=== PATIENT | male | born 1995 | race Caucasian/White ===

== ENCOUNTER 2022-01-30 16:21 | Emergency (ER) | payer BC, SELFPAY ==
[2022-01-30 16:38] VITALS: BP 144/76; PULSE 67; RESP 18; TEMP 36.3; O2SAT 96; BMI 37.5
--- NOTE | 2022-01-30 17:10 | ED_ITS ---
HPI - General Adult General Chief complaint: Rib Pain Stated complaint: RIB INJURY WITH SWELLING Time Seen by Provider: 01/30/22 16:25 History of Present Illness HPI narrative: This 26-year-old male comes in with left lower anterior rib pain from an injury that occurred 4 days ago. He states that he was wrestling in fine with his fiancee and ended up landing on her hip with the of left lower anterior ribs. He had immediate pain which has worsened since then. He does not report any shortness of breath. He states that he still is doing workouts but had to modify as some maneuvers are too painful. Related Data Home Medications Medication Instructions Recorded Confirmed buspirone 5 mg tablet mg 01/30/22 escitalopram oxalate 20 mg tablet mg 01/30/22 gabapentin 100 mg capsule mg 01/30/22 lamotrigine 100 mg tablet mg 01/30/22 levetiracetam 1,000 mg tablet mg PO 01/30/22 testosterone intranasal 01/30/22 Allergies Allergy/AdvReac Type Severity Reaction Status Date / Time azithromycin [From Zithromax] Allergy Verified 01/30/22 16:38 Penicillins Allergy Verified 01/30/22 16:38 Review of Systems Status of ROS: Reports: 10 or more systems reviewed and unremarkable except as noted in History and below Narrative: Constitutional: No fevers, no weight gain or loss. Eyes: No discharge. No vision changes. HENT: No congestion, no sore throat, no ear pain. Cardiovascular: No palpitations. Rib injury as described above. Respiratory: No shortness of breath, no wheezes, no cough. Gastrointestinal: No abdominal pain, no vomiting, no diarrhea. Genitourinary: No dysuria, no hematuria. Musculoskeletal: Normal range of motion. Skin: No rashes, no pruritis. Neurological: No dizziness, weakness, sensory change, speech change. Endo/Heme/Allergies: No bruising or bleeding. No polydipsia. Pysch: no suicidality, no anxiety, no insomnia. All other systems reviewed and are negative. [facility] Medical History (Updated 01/30/22 @ 17:14 by Aj Nolasco MD) Drug abuse and dependence Seizure Social History Smoking Status: Current some day smoker What tobacco products do you use: cigarettes Do you use any of these nicotine containing products: E-Cigarettes How often do you have a drink containing alcohol: never AUDIT-C Alcohol total score: 0 Non-prescribed substance use: former substance user Exam Narrative: Exam Narrative: Constitutional: Well-developed, well-nourished, no acute distress. HEENT: Normocephalic, atraumatic. Neck: Normal range of motion. Nontender. Supple. Heart: Regular. No murmurs. Normal rate. Intact distal pulses. Lungs: Clear to auscultation bilaterally. Left lower anterior ribs are tender t o light palpation. There is no external sign of injury or bruising. No wheezes, rhonchi, or rales. Abdomen: Normal bowel sounds. Nontender. No rebound tenderness. Genitalia: Deferred. Back: No midline tenderness. Normal range of motion. Extremities: Normal range of motion. No injury. Skin: Intact. No rash. Warm. No erythema or pallor. Neurologic: No altered sensation. No weakness. Alert and oriented. Psychiatric: No suicidality. No anxiety or depression. No insomnia. Nursing notes and vitals signs are reviewed. Const: Vital Signs, click to edit/add: Vital Signs - 24 hr 01/30/22 16:38 Temperature 97.4 F L Pulse Rate [Right Pulse Oximeter] 67 Respiratory Rate 18 Blood Pressure [Ri ght Upper Arm] 144/76 H Pulse Oximetry 96 Oxygen Delivery Me thod Room Air Course Vital Signs Vital signs: Initial Vital Signs Temperature 97.4 F L 01/30/22 16:38 Temperature Source Temporal Artery Scan 01/30/22 16:38 Pulse Rate 67 01/30/22 16:38 Respiratory Rate 18 01/30/22 16:38 Blood Pressure 144/76 H 01/30/22 16:38 Blood Pressure Mean 98 01/30/22 16:38 Blood Pressure Position Sitting 01/30/22 16:38 Pulse Oximetry 96 01/30/22 16:38 Oxygen Delivery Method 01/30/22 16:38 Vital Signs Temperature 97.4 F L 01/30/22 16:38 Pulse Rate 67 01/30/22 16:38 Respiratory Rate 18 01/30/22 16:38 Blood Pressure 144/76 H 01/30/22 16:38 Pulse Oximetry 96 01/30/22 16:38 Oxygen Delivery Method 01/30/22 16:38 Temperature 97.4 F L 08/06/22 16:38 Pulse Rate 67 01/30/22 16:38 Respiratory Rate 18 01/30/22 16:38 Blood Pressure 144/76 H 01/30/22 16:38 Pulse Oximetry 96 01/30/22 16:38 Oxygen Delivery Method 01/30/22 16:38 Medical Decision Making MDM Narrative Medical decision making narrative: This patient comes in for evaluation and treatment of a rib injury that occurred 4 days ago. He is not exhibiting any shortness of breath and has normal exam other than tenderness in the left lower anterior ribs. I did discuss the role of chest x-ray and or ultrasound to evaluate this injury. In a process of shared decision-making he declined these for now. He did receive a rib belt and a prescription for Toradol. Discharge Plan Discharge Clinical Impression: Rib injury Patient Disposition: Home, Self-Care Condition: Stable Additional Instructions: Wear rib belt as needed. Increase activity as tolerated. Take medication as needed and directed. Follow up with MD otherwise as needed. Prescriptions: No Action buspirone 5 mg tablet Label Comments: TAKE ONE TABLET BY MOUTH TWICE DAILY gabapentin 100 mg capsule Label Comments: TAKE ONE CAPSULE BY MOUTH EVERY DAY IN THE MORNING. lamotrigine 100 mg tablet Label Comments: take 2.5 tablets by mouth twice daily. escitalopram oxalate 20 mg tablet Label Comments: TAKE ONE TABLET BY MOUTH ONE TIME DAILY levetiracetam 1,000 mg tablet PO Label Comments: TAKE ONE TABLET BY MOUTH TWICE DAILY testosterone intranasal Hold Instructions: takes IM weekly Follow Up/Referrals: Se Figueroa MD [Primary Care Provider] - Stand Alone Forms: [employer] Info Instructions
== END 2022-01-30 17:23 | disposition home or self-care (01) ==
PROVIDERS: Emergency Provider Emergency Medicine Emergency Medical Services; PCP Family Medicine
DX: R07.81 Pleurodynia (principal)
CPT/HCPCS: 99283; 99284

== ENCOUNTER 2022-06-14 11:05 | Emergency (ER) | payer BC, SELFPAY ==
[2022-06-14 11:10] VITALS: BP 176/78; PULSE 98; RESP 16; TEMP 38.2; O2SAT 98; BMI 28.0
[2022-06-14 13:28] LABS: PCR FLU A POSITIVE PCR FLU A (Negative); PCR FLU B Negative PCR FLU B (Negative); PCR RSV Negative PCR RSV (Negative)
[2022-06-14 13:43] LABS: SARS PCR* Negative SARS-CoV-2 (Negative)
--- NOTE | 2022-06-14 15:11 | ED.GENADULT ---
HPI - General Adult General Time Seen by Provider: 15:11 Date Seen: 06/14/22 Chief complaint: Fever Stated complaint: Chest tightness/flu symptoms/home covid negative Time Seen by Provider: 06/14/22 14:47 Source: patient Mode of arrival: ambulatory Limitations: no limitations History of Present Illness HPI narrative: Patient is a 26 year white male that has influenza a by a diagnostic testing today. Has had body aches chills fever. He is on testosterone replacement he has a history of seizure disorder he has been able to keep his medications in. These are reviewed his chart was reviewed. Patient has no shortness of breath no neck pain he feels generally chills hot and cold body aches, consistent with influenza a which she test positive for Related Data Home Medications Medication Instructions Recorded Confirmed buspirone 5 mg tablet mg 01/30/22 escitalopram oxalate 20 mg tablet mg 01/30/22 gabapentin 100 mg capsule mg 01/30/22 lamotrigine 100 mg tablet mg 01/30/22 levetiracetam 1,000 mg tablet mg PO 01/30/22 testosterone intranasal 01/30/22 Allergies Allergy/AdvReac Type Severity Reaction Status Date / Time azithromycin [From Zithromax] Allergy Verified 06/14/22 11:14 Penicillins Allergy Verified 06/14/22 11:14 Review of Systems Status of ROS: Reports: 6 or more systems reviewed and unremarkable except as noted in History and below PFSH PFS Medical History Drug abuse and dependence Seizure Social History Smoking Status: Current some day smoker What tobacco products do you use: cigarettes Do you use any of these nicotine containing products: E-Cigarettes How often do you have a drink containing alcohol: never AUDIT-C Alcohol total score: 0 Non-prescribed substance use: former substance user Exam Narrative: Exam Narrative: Objective: Patient has got a temp a 100.8? alert or x3 O2 sat 90% room air HEENT unremarkable Chest is clear no rales or wheezing Good peripheral perfusion noted Const: Vital Signs, click to edit/add: Vital Signs - 24 hr 06/14/22 11:10 Temperature 100.8 F H Pulse Rate [Right Pulse Oximeter] 98 Respiratory Rate 16 Blood Pressure [Ri ght Upper Arm] 176/78 H Pulse Oximetry 98 Oxygen Delivery Me thod Room Air Course Vital Signs Vital signs: Initial Vital Signs Temperature 100.8 F H 06/14/22 11:10 Temperature Source Temporal Artery Scan 06/14/22 11:10 Pulse Rate 98 06/14/22 11:10 Pulse Rhythm 06/14/22 11:10 Respiratory Rate 16 06/14/22 11:10 Blood Pressure 176/78 H 06/14/22 11:10 Blood Pressure Mean 110 06/14/22 11:10 Blood Pressure Position Sitting 06/14/22 11:10 Pulse Oximetry 98 06/14/22 11:10 Oxygen Delivery Method 06/14/22 11:10 Vital Signs Temperature 100.8 F H 06/14/22 11:10 Pulse Rate 98 06/14/22 11:10 Respiratory Rate 16 06/14/22 11:10 Blood Pressure 176/78 H 06/14/22 11:10 Pulse Oximetry 98 06/14/22 11:10 Oxygen Delivery Method 06/14/22 11:10 Temperature 100.8 F H 06/14/22 11:10 Pulse Rate 98 06/14/22 11:10 Respiratory Rate 16 06/14/22 11:10 Blood Pressure 176/78 H 06/14/22 11:10 Pulse Oximetry 98 06/14/22 11:10 Oxygen Delivery Method 06/14/22 11:10 Medical Decision Making MDM Narrative Medical decision making narrative: Patient test positive for influenza a, at this point observation fluids Tylenol Advil as needed cough medicine as needed, return problems or concerns otherwise return to regular physician the next 2-3 days, no red for off work for 5 days. Lab Data Labs: Lab Results 06/14/22 Range/Units 12:40 SARS-CoV-2 (PCR) Negative SARS-CoV-2 (Negative) Influenza Type A (PCR) POSITIVE PCR FLU A A (Negative) Influenza Type B (PCR) Negative PCR FLU B (Negative) RSV (PCR) Negative PCR RSV (Negative) Discharge Plan Discharge Clinical Impression: Influenza A Patient Disposition: Home w/ Parent or Adult Condition: Stable Additional Instructions: Rest, fluids, Tylenol Advil and as needed, follow-up with primary care as needed return to ED as needed off work for 5 days Activity Level: Light activity Discharge Diet: Regular Prescriptions: No Action buspirone 5 mg tablet Label Comments: TAKE ONE TABLET BY MOUTH TWICE DAILY gabapentin 100 mg capsule Label Comments: TAKE ONE CAPSULE BY MOUTH EVERY DAY IN THE MORNING. lamotrigine 100 mg tablet Label Comments: take 2.5 tablets by mouth twice daily. escitalopram oxalate 20 mg tablet Label Comments: TAKE ONE TABLET BY MOUTH ONE TIME DAILY levetiracetam 1,000 mg tablet PO Label Comments: TAKE ONE TABLET BY MOUTH TWICE DAILY testosterone intranasal Hold Instructions: takes IM weekly Follow Up/Referrals: Se Figueroa MD [Primary Care Provider] - Stand Alone Forms: [employer] Info Instructions
== END 2022-06-14 15:19 | disposition home or self-care (01) ==
PROVIDERS: Emergency Provider Family Medicine; PCP Family Medicine
DX: J09.X2 Influenza due to identified novel influenza A virus with other respiratory manifestations (principal)
CPT/HCPCS: 87502; 87634; 87635; 99283

== ENCOUNTER 2023-10-10 22:27 | Emergency (ER) | payer BC, SELFPAY ==
[2023-10-10 22:37] VITALS: BP 129/82; PULSE 75; RESP 18; TEMP 36.3; O2SAT 96; BMI 29.0
--- NOTE | 2023-10-10 22:53 | ED_ITS ---
HPI - General Adult General Date Seen: 10/10/23 Chief complaint: Skin/Abscess/Foreign Body Stated complaint: Infected tattoo Time Seen by Provider: 10/10/23 22:34 Source: patient Mode of arrival: ambulatory Limitations: no limitations History of Present Illness HPI narrative: Patient is a 28-year-old male who had a tattoo placed a little over week ago. Overall he has done fine but in the area where the brown ink is his skin has blistered and scabbed, he notes itching. He says he was in [facility] last week, he was started on doxycycline while in skilled nursing, but continues to have symptoms. No fevers or systemic complaints. Related Data Home Medications Medication Instructions Recorded Confirmed buspirone 5 mg tablet mg 01/30/22 escitalopram oxalate 20 mg tablet mg 01/30/22 gabapentin 100 mg capsule mg 01/30/22 lamotrigine 100 mg tablet mg 01/30/22 levetiracetam 1,000 mg tablet mg PO 01/30/22 Previous Rx's Medication Instructions Recorded hydrocortisone 2.5 % topical 1 applic topical BID PRN #28.35 10/10/23 ointment grams Allergies Allergy/AdvReac Type Severity Reaction Status Date / Time azithromycin [From Zithromax] Allergy Mild Hives Verified 10/10/23 22:42 Penicillins Allergy Unknown Verified 10/10/23 22:42 [facility] Medical History Drug abuse and dependence Seizure Social History Smoking Status: Current some day smoker What tobacco products do you use: cigarettes Do you use any of these nicotine containing products: E-Cigarettes and Vaping Products Second hand tobacco smoke exposure: No How often do you have a drink containing alcohol: never AUDIT-C Alcohol total score: 0 Non-prescribed substance use: former substance user Exam Narrative: Exam Narrative: Vital signs reviewed. Afebrile. In general, alert, well-appearing male. Extremities: Examination of his left arm shows a large tattoo with several patterson wolves switch look unaffected, in the area where there was supposed to be a brown bear the skin is scabbed and irritated. There is no surrounding erythema, no lymphangitic streaking, no significant swelling. Const: Vital Signs, click to edit/add: Vital Signs - 24 hr 10/10/23 22:37 Temperature 97.4 F L Pulse Rate [Pulse Oximeter] 75 Respiratory Rate 18 Blood Pressure [Ri ght Upper Arm] 129/82 Pulse Oximetry 96 Oxygen Delivery Me thod Room Air Course Course ED Course: This looks to be more of a contact dermatitis, there may be a little bit of a superficial superimposed infection, but I think the doxycycline is a reasonable choice. I do think at this point it would also be good to treat this with a steroid. Will prescribed 5 days of oral prednisone as well as a 2 and 0.5% hydrocortisone topical ointment. He has been leaving this open because he says the dressing tends to stick to his skin and pull pieces off, discussed use of a non adherent dressing, ointment, in keeping this covered while it heals. I woul d recommend avoiding this color ink in the future. Perhaps a black bear would work better. Or consider a polar bear. Anticipate gradual improvement, if he is worsening or has new symptoms such as fever, significant swelling or pain he should be seen again. We did place a dressing here. Tetanus is up to date. Vital Signs Vital signs: Initial Vital Signs Temperature 97.4 F L 10/10/23 22:37 Temperature Source Temporal Artery Scan 10/10/23 22:37 Pulse Rate 75 10/10/23 22:37 Respiratory Rate 18 10/10/23 22:37 Blood Pressure 129/82 10/10/23 22:37 Blood Pressure Mean 97 10/10/23 22:37 Blood Pressure Position Sitting 10/10/23 22:37 Pulse Oximetry 96 10/10/23 22:37 Oxygen Delivery Method Room Air 10/10/23 22:37 Vital Signs Temperature 97.4 F L 10/10/23 22:37 Pulse Rate 75 10/10/23 22:37 Respiratory Rate 18 10/10/23 22:37 Blood Pressure 129/82 10/10/23 22:37 Pulse Oximetry 96 10/10/23 22:37 Oxygen Delivery Method Room Air 10/10/23 22:37 Temperature 97.4 F L 10/10/23 22:37 Pulse Rate 75 10/10/23 22:37 Respiratory Rate 18 10/10/23 22:37 Blood Pressure 129/82 10/10/23 22:37 Pulse Oximetry 96 10/10/23 22:37 Oxygen Delivery Method Room Air 10/10/23 22:37 Discharge Plan Discharge Clinical Impression: Contact dermatitis Patient Disposition: Home, Self-Care Condition: Stable Instructions: Contact Dermatitis (DC) Additional Instructions: Complete your antibiotics as prescribed. Take prednisone as prescribed, I will send a prescription for a topical steroid as well. This is an ointment, you can apply this twice a day along with a nonadherent dressing which you can buy at the drugstore. I would recommend keeping this covered while it heals. Topical steroid can be used for up to 2 weeks, but do not continue it beyond 2 weeks. If this seems to be getting worse rather than better return or follow-up in clinic. Prescriptions: New hydrocortisone 2.5 % ointment 1 applic topical BID PRNQty: 28.35 0RF No Action buspirone 5 mg tablet Patient Comments: TAKE ONE TABLET BY MOUTH TWICE DAILY gabapentin 100 mg capsule Patient Comments: TAKE ONE CAPSULE BY MOUTH EVERY DAY IN THE MORNING. lamotrigine 100 mg tablet Patient Comments: take 2.5 tablets by mouth twice daily. escitalopram oxalate 20 mg tablet Patient Comments: TAKE ONE TABLET BY MOUTH ONE TIME DAILY levetiracetam 1,000 mg tablet PO Patient Comments: TAKE ONE TABLET BY MOUTH TWICE DAILY Follow Up/Referrals: Se Figueroa MD [Primary Care Provider] - Stand Alone Forms: [employer] Info Instructions
[2023-10-10 23:18] VITALS: BP 121/74; PULSE 71; RESP 18; TEMP 36.8; O2SAT 96
[2023-10-10 23:19] VITALS: BP 121/74; PULSE 71; RESP 18; TEMP 36.8
== END 2023-10-10 23:19 | disposition home or self-care (01) ==
LOC: ED 23:05
PROVIDERS: Emergency Provider Emergency Medicine; PCP Family Medicine
DX: L25.8 Unspecified contact dermatitis due to other agents (principal); L81.8 Other specified disorders of pigmentation
CPT/HCPCS: 99283; 99284

== ENCOUNTER 2024-11-23 18:10 | Emergency (ER) | payer OTHER, SELFPAY ==
--- OUTSIDE RECORDS SUMMARY | 2024-11-23 18:13 | XMS_ITS | Clinical Summary ---
Author Organization [facility] Address [address] [place] [id number] Care Team Providers Care Bail Attacher Name Role Phone Se Figueroa MD Primary Care Provider Allergies Active Allergy Reactions Criticality Noted Date Comments Azithromycin 03/19/2019 Penicillins 03/19/2019 Medications levETIRAcetam (KEPPRA) 250 mg oral tablet Take 3 tablets (750 mg) by mouth twice a day. 30 tablet 03/19/2019 Active escitalopram oxalate (LEXAPRO) 20 mg oral tablet Take 20 mg by mouth. 1 03/13/2019 Active Active Problems Problem Noted Date Diagnosed Date Traumatic brain injury Seizures Social History Tobacco Use Types Packs/Day Years Used Date Smoking Tobacco: Every Day Cigarettes Smokeless Tobacco: Never Alcohol Use Standard Drinks/Week Comments Not Currently 0 (1 standard drink = 0.6 oz pur e alcohol) Sex and Gender Information Value Date Recorded Sex Assigned at Not on file Legal Sex Male 4:51 PM CDT Gender Identity Not on file Sexual Orientation Not on file Last Filed Vital Signs Vital Sign Reading Time Taken Comments Blood Pressure 118/72 03/19/2019 7:50 PM CDT Pulse 65 03/19/2019 7:50 PM CDT Temperature 36.4 C (97.6 F) 03/19/2019 5:13 PM CDT Respiratory Rate 12 03/19/2019 7:50 PM CDT Oxygen Saturation 100% 03/19/2019 7:50 PM CDT Inhaled Oxygen Concentration - - Weight - - Height 186.7 cm (6' 1.5) 03/19/2019 5:13 PM CDT Body Mass Index - - Plan of Treatment Health Maintenance Due Date Last Done Comments Hepatitis C Screening 1995 Anxiety Screening (KAMILLA-2) 1996 Depression Assessment (PHQ-2) 1996 COVID-19 Vaccine (2023-2 5 season) 2024 Influenza Vaccine (Season Ended) 2025 05/14/2008 Adult Tetanus Booster 12/07/2028 12/07/2018 , 09/02/2016, 12/14/2006 RSV Vaccines (1 - 1-dose 75+ series) 2070 Meningococcal B Vaccine Aged Out No l onger eligible based on patient's age to complete this topic Pneumococcal Vaccine Aged Out No long er eligible based on patient's age to complete this topic Care Teams Bail Attacher Relationship Specialty Start Date End Date Se Figueroa MD [address] [facility] [place] [address] PCP - General Family Medicine 03/19/19
--- OUTSIDE RECORDS SUMMARY | 2024-11-23 18:13 | XMS_ITS | Referral Summary ---
Author Organization [facility] Address [address] [place] [id number] Care Team Providers Care Fisher Purse Seine Name Role Phone Se Figueroa MD Primary Care Provider [phone] Allergies Active Allergy Reactions Criticality Noted Date [...] Mass Index - - Plan of Treatment Not on file Care Teams Fisher Purse Seine Relationship Specialty Start Date End Date Se Figueroa MD [address] [place] [address] PCP - General Family Medicine 03/19/19
--- OUTSIDE RECORDS SUMMARY | 2024-11-23 18:13 | XMS_ITS | Clinical Summary ---
Author Organization [facility] Address [address] [place] [address] Care Team Providers Care Surgery Scheduler Name Role Phone Se Figueroa MD Primary Care Provider [phone] Source Comments You are receiving this document as you are listed as the primary care provider,follow-up provider, or the patient has been referred to you for consultation.This is in compliance with the Medicare and[facility] EHR Incentive Program,which states Providers who transition their patient to another setting of careor provider of care or refers their patient to another provider of care shouldprovide summary care record for each transition of care or referral. [employer] Allergies Active Allergy Reactions Criticality Noted Date Comments Azithromycin Rash 12/14/2006 Rash like a burn Penicillins Rash 01/08/2018 Tolerated zosyn 01/11/2018 Medications escitalopram oxalate (LEXAPRO) 10 MG tablet Take 2 Tablets (20 mg) by mouth. 8 Active gabapentin (NEURONTIN) 300 MG capsule Take 1 Capsule (300 mg) by mouth daily. 4 Active levETIRAcetam (KEPPRA) 500 MG tabletIndications: Seizure disorder (HRC),Traumatic brain injury, with loss of consciousness greater than 24 hours with return to pre-existing conscious level, sequela (HRC) Take 1 Tablet (500 mg) by mouth two times a day. 450 Tablet 1 4 Active lamoTRIgine (LAMICTAL) 100 MG tabletIndications: Seizure disorder (HRC),Traumatic brain injury, with loss of consciousness greater than 24 hours with return to pre-existing conscious level, sequela (HRC) TAKE THREE TABLETS BY MOUTH TWO TIMES A DAY 540 Tablet Active Active Problems Problem Noted Date Diagnosed Date Seizure disorder 03/23/2019 Traumatic brain injury 02/21/2018 Alcohol abuse 12/12/2017 Cannabis abuse, episodic use 12/12/2017 Depression, recurrent 12/12/2017 Generalized anxiety disorder 12/12/2017 Panic disorder 12/12/2017 Psychophysiological insomnia 12/12/2017 Chemical dependency 10/25/2011 Resolved Problems Problem Noted Date Diagnosed Date Resolved Date Severe episode of recurrent major depressive disorder, with psychotic features 06/29/20232023 Status epilepticus 05/06/2019 Controlled substance agreement signed 12/12/2017 10/25/2023 Overview (10/25/2023): Signed 12/12/17 Dr Brittany Bullock Psychiatry MRSA (methicillin resistant staph aureus) culture positive 02/25/2013 10/25/2023 Overview (10/25/2023): wound Oppositional defiant disorder 10/29/2011 10/25/2023 Conduct disorder, adolescent onset type 10/25/2011 10/25/2023 Social History Tobacco Use Types Packs/Day Years Used Date Smoking Tobacco: Every Day Smokeless Tobacco: Current Comments:e-cig off/on since 2016 and marijuana since age 13, medical marijuana 2019 Alcohol Use Standard Drinks/Week Comments No 0 (1 standard drink = 0.6 oz pur e alcohol) Sex and Gender Information Value Date Recorded Sex Assigned at Not on file Legal Sex Male 4:30 AM CDT Gender Identity Not on file Sexual Orientation Not on file Last Filed Vital Signs Vital Sign Reading Time Taken Comments Blood Pressure 134/85 10/25/2023 12:31 PM CDT Pulse 77 10/25/2023 12:31 PM CDT Temperature 37.7 C (99.8 F) 04/12/2018 2:07 PM CDT Respiratory Rate 18 04/12/2018 2:07 PM CDT Oxygen Saturation 96% 02/18/2018 5:48 AM CDT Inhaled Oxygen Concentration - - Weight 104.3 kg (230 lb) 10/25/2023 12:31 PM CDT Height 182.2 cm (5' 11.75) 10/25/2023 12:31 PM CDT Body Mass Index 31.41 10/25/2023 12:31 PM CDT Plan of Treatment Health Maintenance Due Date Last Done Comments Hep C Screening (Preventive Services) 1995 Adult Preventive Visit 2013 HepB Vaccine (1) 2014 Pneumococcal Vaccine (1 of 2 - PCV) 2014 COVID-19 Vaccine (3 - season) 2024 03/12/2021, 02/06/2021 Influenza Vaccine (Season Ended) 2025 05/14/2008 DTaP/Tdap/Td Vaccine (10 - Tdap) 12/07/2028 12/07/2018, 09/02/2016, 12/14/2006, Additional history exists Zoster/Shingles Vaccine (1 of 2) 2045 IPV (Polio) Vaccine Completed 02/23/2000, 01/11/1996, 1995, Additional history exists HIV Screening (Preventive Services) Completed 12/07/2011 HPV Vaccine Aged Out No longer eligi ble based on patient's age to complete this topic HepA Vaccine Aged Out No longer eligi ble based on patient's age to complete this topic Hib Vaccine Aged Out No longer eligi ble based on patient's age to complete this topic MCV4 Vaccine Aged Out No longer eligi ble based on patient's age to complete this topic Meningococcal B Vaccine Aged Out No l onger eligible based on patient's age to complete this topic [facility] [place] [address] * Guarantor: Sunni Neil Account Type Relation to Patient Date of Phone Billing Address Personal/Family [phone] [address] Advance Directives * Full Code (Latest Code Status on File) Date Activated Date Inactivated Comments 02/07/2018 3:24 PM 02/18/2018 12:17 PM * Full Code Date Activated Date Inactivated Comments 01/08/2018 9:17 AM 02/07/2018 3:24 PM Care Teams Surgery Scheduler Relationship Specialty Start Date End Date Se Figueroa MD [address] [place] [address] [place] [id number] PCP - General Family Practice 01/16/18
--- OUTSIDE RECORDS SUMMARY | 2024-11-23 18:13 | XMS_ITS | Encounter Summary ---
Author Organization [facility] [facility] Address [address] [place] [address] Care Team Providers Care Reed Cleaner Name Role Phone Se Figueroa MD Primary Care Provider [phone] Encounter Details Date Type Department Care Team (Late st Contact Info) Description 01/08/2018 Consent for Procedure/Treatme nt [facility] INFORMED CONSENT RECORD Social History Tobacco Use Types Packs/Day Years Used Date Smoking Tobacco: Never Assessed Sex and Gender Information Value Date Recorded Sex Assigned at Not on file Legal Sex Male 4:30 AM CDT Gender Identity Not on file Sexual Orientation Not on file documented as of this encounter Plan of Treatment Not on file documented as of this encounter Visit Diagnoses Not on filedocumented in this encounter Care Teams Reed Cleaner Relationship Specialty Start Date End Date Se Figueroa MD [address] [place] [address] PCP - General Family Practice 01/16/18 documented as of this encounter
--- OUTSIDE RECORDS SUMMARY | 2024-11-23 18:13 | XMS_ITS | Encounter Summary ---
Author Organization [employer] Address [address] [facility] [place] [address] Care Team Providers Care Input Output Clerk Name Role Phone Se Figueroa MD Primary Care Provider [phone] Encounter Details Date Type Department Care Team (Late st Contact Info) Description 02/23/2021 Nurse Triage Careline [address] [place], [place] [id number] Se Figueroa MD [address] [place] [address] [id number] Social History Tobacco Use Types Packs/Day Years [...] on file documented as of this encounter Nursing Notes * Sherrill Torres RN - 02/23/2021 2:29 PM CDT Reason for Disposition ??? Epileptic seizures occur frequently (several per week) Within last week. Patient difficult historian. Memory issues. Protocols used: [id number] * Sherrill Torres, RN - 02/23/2021 2:22 PM CDT Patient/disabilities caregiver request: Please call this patient. Per my triage he should be seen within 4 hours. Referred to ED if no appts available within a timeframe thought reasonable by MD laborer concrete paving. Clinic RN told this scientific technical writer that patient saw HOLE DIGGER OPERATOR Yasemin Tate for televisit on 12/25/20. No record ofthat visit in this scientific technical writer's [facility] view and patient does not recall such visit. Patient can be reached at [phone] Call transferred from Appointment Center manufacturing scheduler to [facility] for audio visual director. Verified patient identity: Yes Situation/Background (brief explanation of current symptoms/situation): Patient has been having recent seizures, seeing flashing lights, having forgetfulness and sometimes hearing voices. Sometimes his head starts to tingle. 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 He does not know how many seizures he has had lately. He thinks he has had one in the last 1-2 weeks. He started getting symptoms again May of last year. He says he has missed some appointments. He has also run out of medications at times but has always refilled them. He says he is taking his prescribed medications at this time. Patient says he has been out of lorazepam for over a year, which he uses for significant seizures. He is asking for a new prescription. He also feels he needs to see Dr. Pierre as soon as possible. Reviewed with patient pertinent medical history (as it related to the call): Yes PLAN: I advised the patient to be seen within 4 hours or go to ED with new or worsening symptoms or if unable to be seen in clinic. He agreed. I then called to the neuro hotline RN. She stated that in her view of [facility] the patient a follow up with Lea on 12/25/20 and it would be up to the care team to decide if he needs a sooner appt than April. I then advised the patient that I will be routingthis note to Dr. Gilbert's care team with high priority. However, if unable to be seen, he should go to ED for assessment and refill of any emergency medications. I offered continued CareLine assistance at any time 17/01. We also reviewed reasons to call 911. Routed to Holli Gilbert MD care team. documented in this encounter Plan of Treatment Not on file documented as of this encounter Visit Diagnoses Not on filedocumented in this encounter Care Teams Input Output Clerk Relationship Specialty Start Date End Date Se Figueroa MD [address] [place] [address] PCP - General Family Practice 01/16/18 documented as of this encounter
--- OUTSIDE RECORDS SUMMARY | 2024-11-23 18:13 | XMS_ITS | Encounter Summary ---
Author Organization [facility] Address [address] [place] [address] Care Team Providers Care Medical Case Worker Name Role Phone Se Figueroa MD Primary Care Provider Encounter Details Date Type Department Care Team (Latest Contact Info) Description 06/29/2019 Correspondence Neurology at [facility] [address] [place] [address] Holli Gilbert MD [address] [place], [place] [phone] LOSS OF CONSCIOUSNESS OR VOLUNTARY CONROL Social History Tobacco Use Types Packs/Day Years [...] on filedocumented in this encounter Care Teams Medical Case Worker Relationship Specialty Start Date End Date Se Figueroa MD [address] [facility] [place] [address] PCP - General Family Practice 01/16/18 documented as of this encounter
--- OUTSIDE RECORDS SUMMARY | 2024-11-23 18:13 | XMS_ITS | Clinical Summary ---
Author Organization [employer] [facility] Address [address] [place] [address] Care Team Providers Care Food And Beverage Lead Name Role Phone Carl Figueroa MD Primary Care Provider Allergies Active Allergy Reactions Criticality Noted Date Comments Azithromycin Hives,Rash Low 12/14/2006 Penicillins Rash Low 12/14/2006 Penicillin G Anaphylaxis,Hives High 06/10/2021 Medications melatonin 10 mg chew Chew 10 mg by mouth at bedtime. 0 3 Active gabapentin (NEURONTIN) 300 mg capsuleIndicatio ns:Restless legs syndrome Take 1 Capsule (300 mg) by mouth at bedtime. 90 Capsule 1 5 Active lamoTRIgine 150 mg tabletIndication s:Seizure disorder (HC) Take 1 Tablet (150 mg) by mouth two times daily. 180 Tablet 1 5 Active Graduated Compression StockingsIndicat ions:Varicose veins of both lower extremities with pain For personal use. Length: calf Strength: 16-20 mmHg 2 Packet 5 Active levETIRAcetam 500 mg tabletIndication s:Seizure disorder (HC) Take 1 Tablet (500 mg) by mouth two times daily. 5 Active escitalopram oxalate 20 mg tabletIndication s:Severe episode of recurrent major depressive disorder, with psychotic features (HC),KAMILLA (generalized anxiety disorder) Take 1 Tablet (20 mg) by mouth once daily. 90 Tablet 5 Active escitalopram oxalate (LEXAPRO) 20 mg tabletIndication s:Severe episode of recurrent major depressive disorder, with psychotic features (HC),KAMILLA (generalized anxiety disorder) Take 1 Tablet (20 mg) by mouth once daily. 90 Tablet 1 5 11/17/19 25 Discontinu ed(*Availa bility/For mulary change/Cos t of medication ) Active Problems Problem Noted Date Diagnosed Date Severe episode of recurrent major depressive disorder, with psychotic features 06/29/2023 Seizure disorder 03/23/2019 TBI (traumatic brain injury) (HC): 2018. 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 Chemical dependency 10/25/2011 Overview (10/15/2022): treatment [place] [address] 09/2022 Resolved Problems Problem Noted Date Diagnosed Date Resolved Date Controlled substance agreement signed 12/12/2017 11/18/2021 Overview (12/12/2017): Signed 12/12/17 Dr Brittany Bullock Psychiatry Encounters Date Type Department Care Team Description 11/23/2024 Nurse Triage [address] [phone] Carl Figueroa MD Cough 11/14/[address] [address] Carl Figueroa MD Refill Request (Escitalopram Oxalate) 10/15/2024 12:20 PM CDT Office Visit [facility] [address] [place] [address] Soniya Beth, GABE STD (STD testing ) 10/15/2024 Travel 10/02/2024 8:30 AM CDT Orders Only [address] [place] [address] 2 scans: (2-Ord) US VENOUS INSUFFICIENCY LOWER EXTREMITY BILATERAL ([id number]) 10/02/2024 Travel 10/01/[address] [address] Carl Figueroa MD Error-please disregard 09/28/2024 9:30 AM CDT Office Visit [address] [address] Carl Figueroa MD STD (testing) 09/28/2024 Travel 09/26/2024 1:30 PM CDT Office Visit [facility] [address] [place] [address] Amrit Wan MD Back Pain ((R) bottom of shoulder blade) 09/26/2024 Travel 09/26/2024 Nurse Triage [address] [phone] Carl Figueroa MD Back Pain/problem 09/04/2024 10:50 AM CDT Office Visit [address] [phone] Carl Figueroa MD Concerns (Varicose Veins, Right foot and leg) 09/04/2024 Travel from Last 3 Months Immunizations Immunization Administration Dates Next Due COVID-19 vaccine (Moderna 100mcg/0.5mL) PF MDV 03/12/2021,02/06/2021 DTP 02/23/2000, 7,01/11/1996,1995,1995 Hepatitis B (Peds) 04/06/1996,1995, 996 Influenza, IIV3 (Age >=3 years) 05/14/2008 MMR 02/23/2000,10/16/1996 Oral Polio Vaccine 02/23/2000, 6,1995,1995 Pneumococcal Conj 20-valent (Prevnar 20) 09/28/2024 Tdap 12/07/2018,09/02/2016,12/14/2006 Tuberculin (PPD) 07/16/1996 Family History Medical History Relation Name Comments Alcoholism Father Depression Father Cancer-breast Maternal Aunt 1 Cancer Maternal Aunt 2 spleen Hypertension Maternal Grandmother Alcoholism Mother Depression Mother Stroke Other 1 MGGM Cancer-colon Other 2 grt Aunt Cancer Paternal Grandfather 50's Relation Name Status Comments Father Alive Maternal Aunt 1 Maternal Aunt 2 Maternal Grandfather Alive Maternal Grandmother Alive Mother Alive Other 1 Other 2 Paternal Grandfather Paternal Grandmother Alive Social History Tobacco Use Types Packs/Day Years Used Date Smoking Tobacco: Former Cigarettes 0.1 16.4 S tarted: 2008 Smokeless Tobacco: Former Chew Quit: 06/27/2017 Tobacco Cessation:Counseling Given: Not Answered Comments:Zynas chewing tobacco. Alcohol Use Standard Drinks/Week Comments Not Currently 0 (1 standard drink = 0.6 oz pur e alcohol) PHQ-2 Answer Date Recorded PHQ-2 TOTAL SCORE 1 07/24/2024 Social Connections Answer Date Recorded Do you often feel lonely or isolated from those around you? 0 09/26/2024 Financial Resource Strain Answer Date R ecorded Difficulty of Paying Living Expenses 3 09/26/2024 Difficulty of Paying Living Expenses Not on file 09/26/2024 Food Insecurity Answer Date Recorded Do you worry your food will run out before you are able to buy more? 1 09/26/2024 Transportation Needs Answer Date Record ed Does lack of transportation keep you from medica l appointments? 1 09/26/2024 Does lack of transportation keep you from work, meetings or getting things that you need? 1 09/26/2024 Housing Stability Answer Date Recorded What is your housing situation today? 1 09/26/2024 Utilities Answer Date Recorded Do you have trouble paying f or utilities (for example, heat, electricity, water, phone)? 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 Gender Identity Not on file Sexual Orientation Not on file Occupation Industry Job Start Date Job End Date [employer] student Not on file Not on file Not on file Obstetrics History Last Filed Vital Signs Vital Sign Reading Time Taken Comments Blood Pressure 130/75 10/15/2024 12:27 PM CDT Pulse 76 10/15/2024 12:27 PM CDT Temperature 37.3 C (99.1 F) 12/15/2022 5:51 PM CDT Respiratory Rate 16 12/15/2022 5:51 PM CDT Oxygen Saturation 98% 10/15/2024 12:27 PM CDT Inhaled Oxygen Concentration - - Weight 92.3 kg (203 lb 6.4 oz) 10/15/2024 12:27 PM CDT Height 188 cm (6' 2.02) 10/15/2024 12:27 PM CDT Body Mass Index 26.1 10/15/2024 12:27 PM CDT Plan of Treatment Upcoming Encounters Date Type Department Care Team (Late st Contact Info) Description 12/03/2024 9:10 AM CDT Office Visit [facility] [address] [place] [address] Carl Figueroa MD [address] [place] [address] Health Maintenance Due Date Last Done Comments COVID-19 vaccine series ( season) 2024 03/12/2021, 02/06/2021 Influenza Vaccine (Season Ended) 2025 05/14/20 08 Depression screening for age 12+ 07/24/2025 07/24/2024, 06/29/2023, 06/29/2023, Additional history exists BMI (ht and wt on same day) for age 18+ 10/15/2025 10/15/2024, 09/28/2024, 09/04/2024, Additional history exists Tetanus booster 12/07/2028 12/07/2018, 02/2017, 12/14/2006 Hepatitis B series for 19+ Completed 04/06, 1995, 1995 Tdap Completed 12/07/2018, 0 02/2017, 12/14/2006 Pneumococcal series for age 6-49 Completed 09/29/19 25 HIV for age 15-65 Completed 10/15/2024, , 12/07/2011 Hepatitis C screening for ag e 18-79 Completed 10/15/2024, 09/28/2024, 10/17/2017 Procedures Procedure Name Priority Date/Time Associated Diagnosis Comments GC CHLAMYDIA TRACH PROBE Routine 10/15/2024 12:42 PM CDT Screen for STD (sexually transmitted disease) ANTI HCV Routine 10/15/2024 12:41 PM CDT Screen for STD (sexually transmitted disease) HBSAG (HBS) Routine 10/15/2024 12:41 PM CDT Screen for STD (sexually transmitted disease) TREPONEMA PALLIDUM Routine 10/15/2024 12 :41 PM CDT Screen for STD (sexually transmitted disease) ANTI HIV 1/2 Routine 10/15/2024 12:41 PM CDT Screen for STD (sexually transmitted disease) US VENOUS INSUFFICIENCY LOWER EXTREMITY BILATERAL Routine 10/02/2024 9:24 AM CDT Varicose veins of both lower extremities with pain GC CHLAMYDIA TRACH PROBE Routine 09/28/2024 11:36 AM CDT Screen for STD (sexually transmitted disease) ANTI HCV Routine 09/28/2024 10:56 AM CDT Screen for STD (sexually transmitted disease) ANTI HIV 1/2 Routine 09/28/2024 10:56 AM CDT Screen for STD (sexually transmitted disease) TREPONEMA PALLIDUM Routine 09/28/2024 10 :54 AM CDT Screen for STD (sexually transmitted disease) from Last 3 Months Results * GC & CHLAMYDIA DNA PCR [[id number]] (10/15/2024 12:42 PM CDT) Only the most recent of2 resultswithin the time period is included. CHLAMYDIA PROBE Negative 2:38 PM CDT [facility] N GONORRHOEAE PROBE Negative 10/16/2024 2:38 PM CDT [facility] Other URINE SPECIMEN / Unknown Non-Blood / Unknown 10/15/2024 12:42 PM CDT 10/15/2024 12:42 PM CDT us Soniya Beth NP MICROBIOLOGY Final Result Performing Organization Address [facility] Phone Number [facility] [address] [place] [address], [place] * TREPONEMA PALLIDUM [08643.1] (10/15/2024 12:41 PM CDT) Only the most recent of2 resultswithin the time period is included. TREPONEMA PALLIDUM Non-Reacti ve Non-Reacti ve 10/15/2024 11:33 PM CDT [facility] Blood BLOOD SPECIMEN / Unknown Non-Lab Venipuncture / Unknown 10/15/2024 12:41 PM CDT 10/15/2024 12:41 PM CDT us Soniya Beth NP SEND OUTS Final Result Performing Organization Address [facility] Phone Number [facility] [address] [place] [address], [place] * HBSAG (HBS) [[id number]] (10/15/2024 12:41 PM CDT) HEPATITIS B SURFACE ANTIGEN NON-REACT KYLER NON-REACT KYLER 10/16/2024 2:33 PM CDT [employer] Comment: For additional information, please refer to http://education.[employer]/faq/OUY040 (This link is being provided for informational/ educational purposes only.) Blood BLOOD SPECIMEN / Unknown Non-Lab Venipuncture / Unknown 10/15/2024 12:41 PM CDT 10/15/2024 12:41 PM CDT us Soniya Beth NP SEND OUTS Final Result Performing Organization Address [facility]/ZIP Co de Phone Number [facility] [address] [address], * ANTI HCV [75025.2] (10/15/2024 12:41 PM CDT) Only the most recent of2 resultswithin the time period is included. HEPATITIS C ANTIBODY NON-REACT KYLER NON-REACT KYLER 10/16/2024 2:33 PM CDT [employer] Comment: HCV antibody was non-reactive. There is no laboratory evidence of HCV infection. In most cases, no further action is required. However, if recent HCV exposure is suspected, a test for HCV RNA (test code 47485) is suggested. For additional information please refer to http://education.[employer]/faq/XKA62c7 (This link is being provided for informational/ educational purposes only.) Blood BLOOD SPECIMEN / Unknown Non-Lab Venipuncture / Unknown 10/15/2024 12:41 PM CDT 10/15/2024 12:41 PM CDT Soniya Beth SHOE SEWING MACHINE OPERATOR AND TENDER SEND OUTS Final Result Performing Organization Address [facility] de Phone Number [employer] [address] [address], [place] [phone] * ANTI HIV 1/2 [35920.0] (10/15/2024 12:41 PM CDT) Only the most recent of2 resultswithin the time period is included. HIV AG/AB, 4TH GEN NON-REACT KYLER NON-REACT KYLER 10/16/2024 2:33 PM CDT [employer] Comment: HIV-1 antigen and HIV-1/HIV-2 antibodies were not detected. There is no laboratory evidence of HIV infection. PLEASE NOTE: This information has been disclosed to you from records whose confidentiality may be protected by state law. If your state requires such protection, then the state law prohibits you from making any further disclosure of the information without the specific written consent of the person to whom it pertains, or as otherwise permitted by law. A general authorization for the release of medical or other information is NOT sufficient for this purpose. For additional information please refer to http://education.[employer]/faq/ZJZ144 (This link is being provided for informational/ educational purposes only.) The performance of this assay has not been clinically validated in patients less than 2 years old. Blood BLOOD SPECIMEN / Unknown Non-Lab Venipuncture / Unknown 10/15/2024 12:41 PM CDT 10/15/2024 12:41 PM CDT us Soniya Beth NP SEND OUTS Final Result Performing Organization Address City/State/[facility] Co de Phone Number [employer] [facility] [address] [place] [address], * US VENOUS INSUFFICIENCY LOWER EXTREMITY BILATERAL (10/02/2024 9:24 AM CDT) Anatomical Region Laterality Modality LEGS Ultrasound 10/02/2024 8:33 AM CDT Narrative 10/03/2024 4:35 PM CDT VASCULAR ULTRASOUND REPORT DAVE DOUGLAS : 1995 Study Date: 10/02/2024 8:33:21 AM Age: 29 years Tech: BVB Gender: M Referring MD: [id number] [facility] Study performed: Duplex US venous insufficiency, (bilateral). Indication for study: LE pain/edema and varicose veins TECHNIQUE: Lower/upper extremity veins were examined with duplex ultrasound, color-flow and spectral Doppler per exam protocol. Vein compressibility by transducer pressure was used to evaluate presence/absence of DVT/SVT. Venous flow and competence was evaluated by flow augmentation maneuvers per exam protocol. Insufficiency studies were performed with the patient in upright position, with vein diameters measured in mm, and reflux. IMPRESSION: 1. No evidence of deep vein thrombosis in the right and left lower extremity. 2. No evidence of deep venous insufficiency in the right and left lower extremity. 3. Superficial venous insufficiency was noted in the right sapheno-femoral junction and greater saphenous vein at mid thigh, distal thigh, upper calf, mid calf and lower calf. 4. Superficial venous insufficiency was noted in the left greater saphenous vein at mid thigh, knee and upper calf. 5. Incompetent varicose and/or point of care specialist veins as listed below. COMPARISON: No prior study available for comparison. FINDINGS: Right Lower Extremity: No deep venous insufficiency. No evidence of DVT. Varicose vein at proximal medial calf off the GSV, 1.9 mm diameter, 5.8 sec reflux. Left Lower Extremity: No deep venous insufficiency. No evidence of DVT. Varicose vein at proximal medial calf off the GSV, 2.6 mm diameter, 0.0 sec reflux. MEASUREMENTS: + +--------+----+--------+------+ RIGHT Compress SVT Diameter Reflux (mm) (secs) + +--------+----+--------+------+ SFJ yes None 4.8 0.6 + +--------+----+--------+------+ GSV THIGH PRX yes None 3.5 0.0 + +--------+----+--------+------+ GSV THIGH MID yes None 2.9 0.6 + +--------+----+--------+------+ GSV THIGH DST yes None 3.3 0.5 + +--------+----+--------+------+ GSV KNEE yes None 3.0 0.0 + +--------+----+--------+------+ GSV CALF UPPER yes None 3.6 2.0 + +--------+----+--------+------+ GSV CALF MID yes None 2.4 4.8 + +--------+----+--------+------+ GSV CALF LOW yes None 2.7 5.6 + +--------+----+--------+------+ SSV KNEE/SPJ yes None 3.9 0.0 + +--------+----+--------+------+ SSV CALF PRX yes None 2.7 0.0 + +--------+----+--------+------+ SSV CALF MID yes None 2.5 0.0 + +--------+----+--------+------+ + +--------+----+ +------+ LEFT Compress SVT Diameter (mm) Reflux (secs) + +--------+----+ +------+ SFJ yes None 6.2 0.0 + +--------+----+ +------+ GSV THIGH PRX yes None 4.1 0.0 + +--------+----+ +------+ GSV THIGH MID yes None 2.6 0.5 + +--------+----+ +------+ GSV THIGH DST yes None 2.8 0.0 + +--------+----+ +------+ GSV KNEE yes None 3.3 1.0 + +--------+----+ +------+ GSV CALF UPPER yes None 2.4 3.3 + +--------+----+ +------+ GSV CALF MID yes None 1.6 0.0 + +--------+----+ +------+ GSV CALF LOW yes None 1.7 0.0 + +--------+----+ +------+ SSV KNEE/SPJ yes None 2.5 0.0 + +--------+----+ +------+ SSV CALF PRX yes None 2.2 0.0 + +--------+----+ +------+ SSV CALF MID yes None 3.4 0.0 + +--------+----+ +------+ can't evaluate Varicose Veins + + + + RIGHT Location Diameter (mm) Reflux (secs) + + + + proximal medial calf off the GSV 1.9 5.8 + + + + + + + + LEFT Location Diameter (mm) Reflux (secs) + + + + proximal medial calf off the GSV 2.6 0.0 + + + + DEEP SYSTEM +----+--------+-----+ +--------+----+ + RIGHT RIGHT RIGHT LEFT LEFT LEFT Compress DVT Reflux (secs) Compress DVT Reflux (secs) +----+--------+-----+ +--------+----+ + CFV yes None 0.0 yes None 0.0 +----+--------+-----+ +--------+----+ + PFV None 0.0 None 0.0 +----+--------+-----+ +--------+----+ + FV yes None 0.0 yes None 0.0 +----+--------+-----+ +--------+----+ + POPV yes None 0.0 yes None 0.0 +----+--------+-----+ +--------+----+ + can't evaluate Miky Bryant MD. Electronically signed on 10/03/2024 4:35:06 PM This study was performed and interpreted by a service accredited by the Intersocietal Accreditation Commission (IAC/Vascular), www.intersocietal.org/vascular Report generated by [employer]. Final Procedure Note Miky Bryant MD - 10/03/2024 VASCULAR ULTRASOUND REPORT DAVE DOUGLAS : 1995 Study Date: 10/02/2024 8:33:21 AM Age: 29 years Tech: BVB Gender: M Referring MD: [id number] [facility] Site: [facility] Study performed: Duplex US venous insufficiency, (bilateral). Indication for study: LE pain/edema and varicose veins TECHNIQUE: Lower/upper extremity veins were examined with duplex ultrasound,color-flow and spectral Doppler per exam protocol. Vein compressibility bytransducer pressure was used to evaluate presence/absence of DVT/SVT.Venous flow and competence was evaluated by flow augmentation maneuversper exam protocol. Insufficiency studies were performed with the patientin upright position, with vein diameters measured in mm, and reflux. IMPRESSION: 1. No evidence of deep vein thrombosis in the right and left lowerextremity. 2. No evidence of deep venous insufficiency in the right and left lowerextremity. 3. Superficial venous insufficiency was noted in the rightsapheno-femoral junction and greater saphenous vein at mid thigh, distalthigh, upper calf, mid calf and lower calf. 4. Superficial venous insufficiency was noted in the left greatersaphenous vein at mid thigh, knee and upper calf. 5. Incompetent varicose and/or point of care specialist veins as listed below. COMPARISON: No prior study available for comparison. FINDINGS: Right Lower Extremity: No deep venous insufficiency. No evidence of DVT. Varicose vein atproximal medial calf off the GSV, 1.9 mm diameter, 5.8 sec reflux. Left Lower Extremity: No deep venous insufficiency. No evidence of DVT. Varicose vein atproximal medial calf off the GSV, 2.6 mm diameter, 0.0 sec reflux. MEASUREMENTS: + +--------+----+--------+------+ RIGHT Compress SVT Diameter Reflux (mm) (secs) + +--------+----+--------+------+ SFJ yes None 4.8 0.6 + +--------+----+--------+------+ GSV THIGH PRX yes None 3.5 0.0 + +--------+----+--------+------+ GSV THIGH MID yes None 2.9 0.6 + +--------+----+--------+------+ GSV THIGH DST yes None 3.3 0.5 + +--------+----+--------+------+ GSV KNEE yes None 3.0 0.0 + +--------+----+--------+------+ GSV CALF UPPER yes None 3.6 2.0 + +--------+----+--------+------+ GSV CALF MID yes None 2.4 4.8 + +--------+----+--------+------+ GSV CALF LOW yes None 2.7 5.6 + +--------+----+--------+------+ SSV KNEE/SPJ yes None 3.9 0.0 + +--------+----+--------+------+ SSV CALF PRX yes None 2.7 0.0 + +--------+----+--------+------+ SSV CALF MID yes None 2.5 0.0 + +--------+----+--------+------+ + +--------+----+ +------+ LEFT Compress SVT Diameter (mm) Reflux (secs) + +--------+----+ +------+ SFJ yes None 6.2 0.0 + +--------+----+ +------+ GSV THIGH PRX yes None 4.1 0.0 + +--------+----+ +------+ GSV THIGH MID yes None 2.6 0.5 + +--------+----+ +------+ GSV THIGH DST yes None 2.8 0.0 + +--------+----+ +------+ GSV KNEE yes None 3.3 1.0 + +--------+----+ +------+ GSV CALF UPPER yes None 2.4 3.3 + +--------+----+ +------+ GSV CALF MID yes None 1.6 0.0 + +--------+----+ +------+ GSV CALF LOW yes None 1.7 0.0 + +--------+----+ +------+ SSV KNEE/SPJ yes None 2.5 0.0 + +--------+----+ +------+ SSV CALF PRX yes None 2.2 0.0 + +--------+----+ +------+ SSV CALF MID yes None 3.4 0.0 + +--------+----+ +------+ can't evaluate Varicose Veins + + + + RIGHT Location Diameter (mm) Reflux (secs) + + + + proximal medial calf off the GSV 1.9 5.8 + + + + + + + + LEFT Location Diameter (mm) Reflux (secs) + + + + proximal medial calf off the GSV 2.6 0.0 + + + + DEEP SYSTEM +----+--------+-----+ +--------+----+ + RIGHT RIGHT RIGHT LEFT LEFT LEFT Compress DVT Reflux (secs) Compress DVT Reflux (secs) +----+--------+-----+ +--------+----+ + CFV yes None 0.0 yes None 0.0 +----+--------+-----+ +--------+----+ + PFV None 0.0 None 0.0 +----+--------+-----+ +--------+----+ + FV yes None 0.0 yes None 0.0 +----+--------+-----+ +--------+----+ + POPV yes None 0.0 yes None 0.0 +----+--------+-----+ +--------+----+ + can't evaluate Miky Bryant MD. Electronically signed on 10/03/2024 4:35:06 PM This study was performed and interpreted by a service accredited by theIntersocietal Accreditation Commission (IAC/Vascular),www.intersocietal.org/vascular Report generated by [employer]. 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
--- OUTSIDE RECORDS SUMMARY | 2024-11-23 18:13 | XMS_ITS | Encounter Summary ---
Author Organization [facility] Address [address] [place] [address] Care Team Providers Care Lead Php Developer Name Role Phone Se Figueroa MD Primary Care Provider [phone] Encounter Details Date Type Department Care Team [...] on filedocumented in this encounter Care Teams Lead Php Developer Relationship Specialty Start Date End Date Se Figueroa MD [address] [place] [address] PCP - General Family Practice 01/16/18 documented as of this encounter
[2024-11-23 18:28] VITALS: BP 129/80; PULSE 63; RESP 20; TEMP 36.6; O2SAT 97; BMI 26.7
--- NOTE | 2024-11-23 18:55 | CRLHL7_ITS ---
For Patients: As a result of the Cures Act, medical imaging exams and procedure reports are released immediately into your electronic medical record. You may view this report before your referring provider. If you have questions, please contact your health care provider. INDICATION: Dyspnea COMPARISON: None. TECHNIQUE: Frontal and lateral radiographic views of the chest. FINDINGS: No pneumothorax. No pleural effusion. No definite focal pulmonary consolidation. Normal heart size. No evident acute displaced rib fracture. Slight anterior vertebral body wedging most conspicuous at the thoracolumbar junction. IMPRESSION: No acute cardiopulmonary findings. Dictated by Gustabo Dutton MD @ 11/23/2024 7:53:34 PM (Electronically Signed)
--- NOTE | 2024-11-23 20:18 | ED_ITS ---
HPI - General Adult General Date Seen: 11/23/24 Chief complaint: Shortness of Breath/Dyspnea Stated complaint: hard time breathing Time Seen by Provider: 11/23/24 19:10 Source: patient Mode of arrival: ambulatory Limitations: no limitations History of Present Illness HPI narrative: Patient is a 29-year-old male presenting to the emergency department for concerns of ?a hard time breathing.States for the past few days he has been having pain to his back and right ribs whenever he coughs. At baseline he has no pain at all. States the pain is only there when he coughs and he only coughs after he smokes medical marijuana. Has not had symptoms like this before. States he vapes but does not smoke cigarettes. Saw Urgent Care few days ago and was told he was okay. He is concerned he could have pneumonia as he has had pneumonia in the past. States he will get lightheadedness and intermittent shortness of breath when he is coughing. Denies fevers, chills, chest pain, abdominal pain, vision changes, weakness, numbness. No other concerns noted. Related Data Home Medications ?Medication ?Instructions ?Recorded ?Confirmed escitalopram oxalate 20 mg tablet mg 01/30/22 11/13/24 gabapentin 100 mg capsule mg 01/30/22 11/13/24 lamotrigine 100 mg tablet mg 01/30/22 11/13/24 levetiracetam 1,000 mg tablet mg PO 01/30/22 11/13/24 Allergies Allergy/AdvReac Type Severity Reaction Status Date / Time azithromycin (From Zithromax) Allergy Mild Hives Verified 11/13/24 09:13 Penicillins Allergy Unknown Verified 11/13/24 09:13 Review of Systems Status of ROS: Reports: 10 or more systems reviewed and unremarkable except as noted in History and below [facility] Medical History Drug abuse and dependence ?F19.20 - Other psychoactive substance dependence, uncomplicated (ICD-10) Seizure ?R56.9 - Unspecified convulsions (ICD-10) Social History Smoking Status: Current some day smoker What tobacco products do you use: cigarettes Do you use any of these nicotine containing products: E-Cigarettes and Vaping Products Second hand tobacco smoke exposure: No How often do you have a drink containing alcohol: never AUDIT-C Alcohol total score: 0 Non-prescribed substance use: former substance user Exam Narrative: Exam Narrative: Const: Well-nourished, Well-developed, in mild distress Eyes: PERRL, no conjunctival injection, and symmetrical lids HENT: Atraumatic external nose and ears. Moist mucous membranes. Neck: Symmetric, trachea midline, No thyromegaly. CVS: RRR, No murmurs or gallops. Peripheral pulses 2+ and equal in all extremities RESP: Unlabored respiratory effort. Clear to auscultation bilaterally. GI: Nontender/Nondistended, No rebound or guarding. MSK:Extremities w/o deformity, Normal Active ROM Skin: Warm, Dry. No rashes or lesions. Neuro: Normal Muscle tone, No focal neurological deficits. Psych: Awake, Alert, & Oriented x3. Appropriate mood and affect. Const: Vital Signs, click to edit/add: Vital Signs - 24 hr 11/23/24 18:28 Temperature 97.9 F Pulse Rate [Pulse Oximeter] 63 Respiratory Rate 20 Blood Pressure [Ri ght Upper Arm] 129/80 Pulse Oximetry 97 Oxygen Delivery Me thod Room Air Course Vital Signs Vital signs: Initial Vital Signs Temperature 97.9 F 11/23/24 18:28 Temperature Source Temporal Artery Scan 11/23/24 18:28 Pulse Rate 63 11/23/24 18:28 Respiratory Rate 20 11/23/24 18:28 Blood Pressure 129/80 11/23/24 18:28 Blood Pressure Mean 96 11/23/24 18:28 Blood Pressure Position Sitting 11/23/24 18:28 Pulse Oximetry 97 11/23/24 18:28 Oxygen Delivery Method Room Air 11/23/24 18:28 Vital Signs Temperature 97.9 F 11/23/24 18:28 Pulse Rate 63 11/23/24 18:28 Respiratory Rate 20 11/23/24 18:28 Blood Pressure 129/80 11/23/24 18:28 Pulse Oximetry 97 11/23/24 18:28 Oxygen Delivery Method Room Air 11/23/24 18:28 Temperature 97.9 F 11/23/24 18:28 Pulse Rate 63 11/23/24 18:28 Respiratory Rate 20 11/23/24 18:28 Blood Pressure 129/80 11/23/24 18:28 Pulse Oximetry 97 11/23/24 18:28 Oxygen Delivery Method Room Air 11/23/24 18:28 Medical Decision Making MDM Narrative Medical decision making narrative: Patient is a 29-year-old male presenting to emergency department for episodes of shortness of breath and muscle pain when coughing. His pain is in his back around the rhomboid region. He states symptoms started after big coughing fit. I do believe he strained a muscle from the coughing. Chest x-ray was ordered though and reviewed by myself the radiologist showing no concerning abnormalities. I do feel comfortable discharging patient home with Tylenol and ibuprofen. Do not believe further workup is necessary is again symptoms are only there when he is coughing and seemed to be a muscle strain. Imaging Data Chest x-ray: Attestation: I have reviewed the pertinent imaging results. Radiologist's impression: No acute cardiopulmonary findings. Dictated by Gustabo Dutton MD @ 11/23/2024 7:53:34 PM Discharge Plan Discharge Clinical Impression: Strain of thoracic back region Patient Disposition: Home, Self-Care Condition: Stable Instructions: Muscle Strain (ED) Additional Instructions: I believe your symptoms related to muscle strain from her coughing. Take Tyleno l and ibuprofen for your pain. Return to emergency department for new or worsening symptoms. Prescriptions: No Action gabapentin 100 mg capsule Patient Comments: TAKE ONE CAPSULE BY MOUTH EVERY DAY IN THE MORNING. lamotrigine 100 mg tablet Patient Comments: take 2.5 tablets by mouth twice daily. escitalopram oxalate 20 mg tablet Patient Comments: TAKE ONE TABLET BY MOUTH ONE TIME DAILY levetiracetam 1,000 mg tablet PO Patient Comments: TAKE ONE TABLET BY MOUTH TWICE DAILY Follow Up/Referrals: Se Figueroa MD [Primary Care Provider, Family Practice] Stand Alone Forms: [employer] Info Instructions
[2024-11-23 20:30] VITALS: BP 125/74; PULSE 68; RESP 20; TEMP 36.6; O2SAT 97
== END 2024-11-23 20:30 | disposition home or self-care (01) ==
PROVIDERS: Emergency Provider Student in an Organized Health Care Education/Training Program; PCP Family Medicine
DX: S29.012A Strain of muscle and tendon of back wall of thorax, initial encounter (principal); R05.9 Cough, unspecified; R06.02 Shortness of breath
CPT/HCPCS: 71046; 99283